=== PATIENT | female | born 1985 | race Caucasian/White ===

== ENCOUNTER → 2017-07-27 | Day surgery (SDC) | payer OTHER ==
[~2017-07-27] VITALS: Ht 167.6 cm; Wt 76.2 kg
--- NOTE | ~2017-07-27 | O ---
[facility] [place] [address] OPERATIVE REPORT Name: MEGAN CHILDERS Linda Room #: REG [facility].#: [id number] Admission: 07/27/17 Attend Phys: Reina Wong MD Discharge: Date of : 85 Report #: [id number] THIS REPORT FOR: //name// CC: Reina Wong DATE OF SERVICE: 07/27/2017 PREOPERATIVE DIAGNOSIS: Missed /incomplete . POSTOPERATIVE DIAGNOSIS: Missed /incomplete . SURGEON: Reina Wong MD ASSISTANTS: None. OPERATION: Suction dilation and curettage. ANESTHESIA: General endotracheal. ESTIMATED BLOOD LOSS: 20 mL SPECIMENS: Products of conception. COMPLICATIONS: None. DESCRIPTION OF PROCEDURE: Following informed consent, which was discussed with the patient and her , risks of surgery including risks of general anesthesia, scarring, bleeding, infection, perforation, the patient was taken to the recovery room and placed under general endotracheal anesthesia. She was placed in dorsal lithotomy position and was sterilely prepped and draped. A bimanual exam was performed with an anterior flexed uterus noted. The tenaculum was used to grasp the anterior lip of the cervix and the cervix was already dilated to an 8-Thai and that size suction catheter was gently inserted following a uterine sound of 9 cm depth. Some tissue was gently removed with suction and then sharp curettage was used to further remove until uterine cry felt all around. Good hemostasis and the tenaculum was removed without bleeding from the tenaculum sites. The patient was taken to the recovery room in good condition. <ELECTRONICALLY SIGNED> By: Reina Wong MD 08/16/17 1841 1753 1839 Reina Wong MD /nt
--- NOTE | ~2017-07-27 | S ---
[facility] [place] [address] SURGICAL PATH RPT PROCEDURE Name: MEGAN CHILDERS Room #: REG [facility]..#: [id number] Admission: 07/27/17 Date of : 85 Discharge: Report #: [id number] Path Case #: [id number] PATHOLOGY REPORT COLLECTION DATE: 07/27/2017 RECEIVED DATE: 07/27/2017 SUBMITTING PHYS: Dr. Reina Wong OTHER PHYS: SPECIMEN(S) RECEIVED: A.Products of conception * * * * * * * * * * * * FINAL DIAGNOSIS: "Products of conception": - Immature chorionic villi, amnionic membranes, and inflamed decidua consistent with products of conception. (CLW:pit; 07/29/2017) PATHOLOGIST: Lora Barrow M.D. REPORT ELECTRONICALLY SIGNED BY: Lora Barrow M.D. DATE/TIME: 07/29/2017 13:56 * * * * * * * * * * * * GROSS PATHOLOGY: Received in formalin labeled "Megan Childers, products of conception," is a 6.2 x 3.7 x 1.4 cm aggregate of abundant blood clot admixed with spongiform, pink-watson tissue. tissue is not grossly evident. Vesicular structures are absent. [employer] tissue is submitted in cassette A1 through A3. (DAC; 07/28/2017) CLINICAL HISTORY: Spontaneous INITIAL CPT CODE(S): A; 85005 Professional services performed by [facility] at [facility] [address], [place] [address] Technical services performed by [facility] at [address] [place] [address], [place] [address], [place] [address]. [facility] [address] [place] [address] SURGICAL PATH RPT PROCEDURE Name: MEGAN CHILDERS Room #: REG [facility] [place] [place] M.R.#: [id number] Admission: 07/27/17 Date of : 85 Discharge: Report #: [id number] Path Case #: [id number] [facility] [address] [address] PHONE: [phone] DIRECTOR: Claude Isabel M.D. * * * END OF REPORT * * *
--- NOTE | ~2017-07-27 | H ---
[facility] [place] [address] HISTORY AND PHYSICAL Name: LISETHMEGAN Linda Room #: REG [facility] M..#: [id number] Admission: 07/27/17 Attend Phys: Reina Wong MD Discharge: Date of : 85 Report #: [id number] THIS REPORT FOR: //name// CC: Reina Wong DATE OF SERVICE: 07/27/2017 HISTORY OF PRESENT ILLNESS: The patient is a 31-year-old 2, para 1 white female who presented with a positive test in May and a last menstrual period of April 29 when she came in for her new OB appointment in June. No heart tones were heard. Then, she started to have spotting. On July 11, she was seen in the Emergency Room at [facility] and at that point was found to have on ultrasound a intrauterine gestational sac; however, no pole and the size of the sac significantly smaller than should have been by dates. She had increased bleeding on the but her beta hCG was still only 28,000 down from the Emergency Room beta hCG level of 32,316. With a declining number, she was felt to be a missed AB. She elected to give it some time to see if it would go ahead and so she got some bleeding and it started, if it would complete itself, but unfortunately it still only had fallen to 26,500 by the . We discussed D and C versus Cytotec. She elected to try Cytotec in an effort to avoid further surgery, but after 1 dose, she had very heavy bleeding, did pass tissue, but continued to off and on bleed and so an ultrasound was done again yesterday and was consistent with quite thickened endometrium and an elongated fluid collection. So it was felt that she has an incomplete miscarriage and she elected to have a D and C rather than redose the Cytotec as the heaviness of bleeding was too alarming to her. PAST MEDICAL HISTORY: She normally has periods every 30-35 days. She did have a D and C for retained products of conception in July of 2015, 2, para 1, 1 vaginal delivery and she had mono in 2003. SOCIAL HISTORY: She has been since 2011. She is now staying home with her daughter. She is a nonsmoker. No alcohol, no drugs. FAMILY HISTORY: Significant for her mother who had clear cell ovarian cancer, breast cancer in 2 maternal aunts and maternal grandmother had a stroke in her 70s. Maternal grandfather had COPD. Paternal grandfather had heart disease and hypertension in his 60s and in his late 70s. Paternal grandmother lived into her 90s. PHYSICAL EXAMINATION: VITAL SIGNS: Her height is 66 inches, her weight is 171, her pulse 68, blood pressure 126/74. GENERAL: She is in no acute distress. LUNGS: Clear. HEART: Regular rate and rhythm without murmur. [address] [address] HISTORY AND PHYSICAL Name: LISETHMEGAN Room #: REG [facility]..#: [id number] Admission: 07/27/17 Attend Phys: Reina Wong MD Discharge: Date of : 85 Report #: [id number] ABDOMEN: Nontender. PELVIC: Shows no external blood staining. Vaginal exam has minimal blood and her cervical os is open with minimal blood. ASSESSMENT AND PLAN: Incomplete status post Cytotec and plan is suction D and C and we will be doing that today this afternoon at [facility]. <ELECTRONICALLY SIGNED> By: Reina Wong MD 08/16/17 1841 1210 1249 Reina Wong MD /nt
[2017-07-27 15:57] LABS: HEMATOCRIT 33.4 % (37.0-47.0); HEMOGLOBIN 11.7 gm/dL (12.0-15.0)
[2017-07-27 16:01] VITALS: BP 102/70
[2017-07-27 18:21] VITALS: BP 102/70
== END | disposition home or self-care (01) ==
LOC: OR 15:12
PROVIDERS: Family Medicine
DX: O03.4 Incomplete spontaneous abortion without complication (principal); K21.9 Gastro-esophageal reflux disease without esophagitis
CPT/HCPCS: 50010; 50101; 62110; 62900; 70005